=== PATIENT | male | born 1990 | race African-American/Black ===

== ENCOUNTER 2016-07-18 13:56 | Inpatient (IN) | payer OTHER ==
[2016-07-18 17:18] VITALS: BMI 25.0
--- NOTE | 2016-07-18 19:26 | HP ---
COWS - Scale Resting Pulse: 0= [place] 80 or Below Sweatin= Chills/Flushing Restless Observation: 3= Extraneous Movement Pupil Size: 0= Normal to Room Light Bone or Joint Aches: 2= Severe Diffuse Aches Runny Nose/ Eye Tearin= Runny Nose/Eyes GI Upset > 30mins: 2= Nausea/Diarrhea Tremor Observation: 2= Slight Tremor Visible Yawning Observation: 0= None Anxiety or Irritability: 2=Irritable/Anxious Goose Flesh Skin: 0=Smooth Skin COWS Score: 14 Admission [facility] - HPI Chief Complaint: WITHDRAWAL SX Allergies/Adverse Reactions: Allergies Allergy/AdvReac Type Severity Reaction Status Date / Time No Known Allergies Allergy Verified 07/18/16 18:02 History of Present Illness: 25 YEARS OLD MALE WITH LONG HISTORY OF OPIUM NICOTINE DEPENDENCE DENIES MEDICAL ISSUE HAS DEPRESSION IS ADMITTED TO DETOX Exam Limitations: No Limitations - Ebola screening Have you traveled outside of the country in the last 21 days: No Have you had contact with anyone from an Ebola affected area: No Have you been sick,other than usual withdrawal symptoms: No Do you have a fever: No - Review of Systems Constitutional: Chills, Changes in sleep, Weight Stable EENT: reports: No Symptoms Reported Respiratory: reports: No Symptoms reported Cardiac: reports: No Symptoms Reported GI: reports: Nausea, Poor Fluid Intake, Abdominal cramping : reports: No Symptoms Reported Musculoskeletal: reports: Back Pain, Joint Pain, Muscle Pain, Neck Pain Integumentary: reports: Change in Color (IV OPIUM) Neuro: reports: Tremors Endocrine: reports: No Symptoms Reported Hematology: reports: No Symptoms Reported Psychiatric: reports: Judgement Intact, Orientated x3, Depressed Other Systems: Reviewed and Negative Patient History - Patient Medical History Hx Anemia: No Hx Asthma: No Hx Chronic Obstructive Pulmonary Disease (COPD): No Hx Cancer: No Hx Cardiac Disorders: No Hx Congestive Heart Failure: No Hx Hypertension: No Hx Hypercholesterolemia: No Hx Pacemaker: No HX Cerebrovascular Accident: No Hx Seizures: No Hx Dementia: No Hx Diabetes: No Hx Gastrointestinal Disorders: No Hx Liver Disease: No Hx Genitourinary Disorders: No Hx Sexually Transmitted Disorders: No Hx Renal Disease (ESRD): No Hx Thyroid Disease: No Hx Human Immunodeficiency Virus (HIV): No Hx Hepatitis C: No Hx Depression: Yes Hx Suicide Attempt: No Hx Bipolar Disorder: No Hx Schizophrenia: No - Patient Surgical History Past Surgical History: No Hx Neurologic Surgery: No Hx Cataract Extraction: No Hx Cardiac Surgery: No Hx Lung Surgery: No Hx Breast Surgery: No Hx Breast Biopsy: No Hx Abdominal Surgery: No Hx Appendectomy: No Hx Cholecystectomy: No Hx Genitourinary Surgery: No Hx Orthopedic Surgery: No - PPD History Previous Implant?: Yes Documented Results: Negative w/o proof Implanted On Prior [facility] Admission?: No PPD to be Administered?: Yes - Smoking Cessation Smoking history: Current every day smoker Have you smoked in the past 12 months: Yes Aproximately how many cigarettes per day: 10 Cigars Per Day: 0 Hx Chewing Tobacco Use: No Initiated information on smoking cessation: Yes 'Breaking Loose' booklet given: 07/18/16 - Substance & Tx. History Hx Alcohol Use: No Hx Substance Use: Yes Substance Use Type: Cocaine, Heroin, Marijuana Hx Substance Use Treatment: No - Substances Abused Alprazolam (Xanax) Route: Oral Frequency: Daily Amount used: 4mg Age of first use: 20 Date of Last Use: 07/17/16 Heroin Route: Injection Frequency: Daily Amount used: 40$ Age of first use: 20 Date of Last Use: 07/17/16 Admission Physical Exam [facility] - Vital Signs Vital Signs: Vital Signs - 24 hr 07/18/16 17:07 Temperature 98.6 F Pulse Rate 72 Respiratory 18 Rate Blood Pressure 116/71 - Physical General Appearance: Yes: Nourished, Appropriately Dressed, Mild Distress, Tremorous, Irritable, Sweating, Anxious HEENTM: Yes: Hearing grossly Normal, Normal ENT Inspection, Normocephalic, Normal Voice Respiratory: Yes: Chest Non-Tender, Lungs Clear, Normal Breath Sounds, No Respiratory Distress, No Accessory Muscle Use Neck: Yes: Supple, Trachea in good position Breast: Yes: Breasts Symetrical Cardiology: Yes: Regular Rhythm, Regular Rate, S1, S2 Abdominal: Yes: Non Tender, Soft Genitourinary: Yes: Within Normal Limits Back: Yes: Normal Inspection Musculoskeletal: Yes: full range of Motion, Gait Steady, Back pain, Muscle Pain Extremities: Yes: Normal Range of Motion, Non-Tender, Tremors Neurological: Yes: Fully Oriented, Alert, Motor Strength 5/5, Normal Response, Depressed Affect Integumentary: Yes: Warm Lymphatic: Yes: Within Normal Limits - Diagnostic (1) Opioid dependence with withdrawal Current Visit: Yes Status: Acute (2) Cocaine dependence with withdrawal Current Visit: Yes Status: Chronic (3) Cannabis dependence, uncomplicated Current Visit: Yes Status: Chronic (4) Nicotine dependence Current Visit: Yes Status: Acute Qualifiers: Nicotine product type: cigarettes Substance use status: in withdrawal Qualified Code(s): F17.213 - Nicotine dependence, cigarettes, with withdrawal (5) Depression (emotion) Current Visit: Yes Status: Suspected Qualifiers: Depression Type: dysthymia Qualified Code(s): F34.1 - Dysthymic disorder Cleared for Admission [facility] - Detox or Rehab [facility] Level of Care: Medically Managed Detox Regimen/Protocol: Methadone [facility] Breath Alcohol Content Breath Alcohol Content: 0 Urine Drug Screen - Results Drug Screen Negative: No Urine Drug Screen Results: THC-Marijuana, KATE-Cocaine, OPI-Opiates
[2016-07-18] MEDS ORDERED: guaiFENesin/D-METHORPHAN HB 10 ML UNIT-DOSE CUPS PO PRN (19:29)
[2016-07-18] MEDS ORDERED: MAG HYDROX/AL HYDROX/SIMETH 30 ML UNIT-DOSE CUP PO PRN (19:29)
[2016-07-18] MEDS ORDERED: LOPERAMIDE HCL 2 MG CAPSULE PO PRN (19:29)
[2016-07-18] MEDS ORDERED: IBUPROFEN 400 MG TABLET (FP) PO PRN (19:29)
[2016-07-18] MEDS ORDERED: ACETAMINOPHEN 325 MG TABLET (FP) PO PRN (19:29)
[2016-07-18] MEDS ORDERED: MAGNESIUM CITRATE 300 ML BOTTLE PO PRN (19:29)
[2016-07-18] MEDS ORDERED: NICOTINE POLACRILEX 2 MG GUM BC PRN (19:29)
[2016-07-18] MEDS ORDERED: METHADONE HCL 10 MG TABLET (FOR DETOX USE ONLY) PO ONE ×2 (19:29→23:00)
[2016-07-18] MEDS ORDERED: P-EPHED 60MG/TRIPROLIDI 2.5MG TABLET PO PRN (19:29)
[2016-07-18] MEDS ORDERED: MAGNESIUM HYDROX 2400MG/30ML ORAL SUSPENSION 30 ML CUP PO PRN (19:29)
[2016-07-18] MEDS ORDERED: MENTHOL/PHENOL 1 EACH UD MM PRN (19:29)
[2016-07-18] MEDS: THIAMINE HCL 100 MG TABLET (FP) PO SCH (22:10)
[2016-07-18 22:58] LABS: URINE APPEARANCE CLEAR; URINE BILIRUBIN NEGATIVE (NEGATIVE); URINE BLOOD NEGATIVE (NEGATIVE); URINE COLOR LTYELLOW; URINE GLUCOSE (UA) NEGATIVE (NEGATIVE); URINE KETONE NEGATIVE (NEGATIVE); URINE LEUK ESTERASE NEGATIVE (NEGATIVE); URINE NITRITE NEGATIVE (NEGATIVE); URINE PROTEIN NEGATIVE (NEGATIVE); URINE UROBILINOGEN NEGATIVE E.U./dl (0.2-1.0)
[2016-07-19] MEDS ORDERED: METHADONE HCL 10 MG TABLET (FOR DETOX USE ONLY) PO ONE (10:00)
[2016-07-19 10:04] LABS: MCH 28.6 pg (25.7-33.7); MCHC 33.3 g/dl (32.0-35.9); PLATELET COUNT 241 K/MM3 (134-434); RDW 15.2 % (11.9-15.9); WHITE BLOOD COUNT 9.8 K/mm3 (4.0-10.0)
[2016-07-19] MEDS: NICOTINE 14 MG/24 HOURS TOPICAL PATCH TD SCH (10:13)
[2016-07-19] MEDS: PRENATAL VITAMINS W/ FOLIC ACID TABLET (FP) PO SCH (10:13)
[2016-07-19 10:28] LABS: ALBUMIN 3.6 g/dl (3.4-5.0); ALK PHOS 74 U/L (45-117); ANION GAP 8 (8-16); BILIRUBIN,TOTAL 0.6 mg/dL (0.2-1.0); CALCIUM 9.2 mg/dL (8.5-10.1); CO2 27 mmol/L (21-32); COCKROFT - GAULT 103.22; CREATININE 1.2 mg/dL (0.7-1.3); GLUCOSE,RANDOM 102 mg/dL (74-106); SGOT/AST 92 U/L (15-37); SGPT/ALT 30 U/L (12-78); TOT PROT 7.5 g/dl (6.4-8.2)
--- NOTE | 2016-07-19 14:25 | PN ---
S COWS - Scale Resting Pulse: 0= [place] 80 or Below Sweatin=Flushed/Facial Moisture Restless Observation: 1= Difficult to Sit Still Pupil Size: 0= Normal to Room Light Bone or Joint Aches: 2= Severe Diffuse Aches Runny Nose/ Eye Tearin= Nasal Congestion GI Upset > 30mins: 2= Nausea/Diarrhea Tremor Observation of Outstretched Hands: 2= Slight Tremor Visible Yawning Observation: 1= 1-2x During Session Anxiety or Irritability: 2=Irritable/Anxious Goose Flesh Skin: 3=[place] COWS Score: 16 S Progress Note (SOAP) Subjective: Tremors, Diarrhea, H/A, Body Aches, Stomach Cramping, Sweating. Objective: PT. A & O X 3, OBSERVED AMBULATING ON UNIT. NO ACUTE DISTRESS. 07/19/16 14:23 Vital Signs Temperature 98.3 F 07/19/16 13:02 Pulse Rate 65 07/19/16 13:02 Respiratory Rate 18 07/19/16 13:02 Blood Pressure 117/59 07/19/16 13:02 O2 Sat by Pulse Oximetry (%) Laboratory Tests 07/18/16 07/19/16 07/19/16 22:18 06:00 06:00 WBC 9.8 RBC 4.31 Hgb 12.3 Hct 37.1 MCV 86.0 MCHC 33.3 RDW 15.2 Plt Count 241 MPV 9.0 Sodium 134 L Potassium 4.6 Chloride 99 Carbon Dioxide 27 Anion Gap 8 BUN 14 Creatinine 1.2 Creat Clearance w eGFR > 60 Random Glucose 102 Calcium 9.2 Total Bilirubin 0.6 AST 92 H ALT 30 Alkaline Phosphatase 74 Total Protein 7.5 Albumin 3.6 Urine Color Ltyellow Urine Appearance Clear Urine pH 6.0 Ur Specific [place] 1.015 Urine Protein Negative Urine Glucose (UA) Negative Urine Ketones Negative Urine Blood Negative Urine Nitrite Negative Urine Bilirubin Negative Urine Urobilinogen Negative Ur Leukocyte Esterase Negative RPR Titer 07/19/16 06:00 WBC RBC Hgb Hct MCV MCHC RDW Plt Count MPV Sodium Potassium Chloride Carbon Dioxide Anion Gap BUN Creatinine Creat Clearance w eGFR Random Glucose Calcium Total Bilirubin AST ALT Alkaline Phosphatase Total Protein Albumin Urine Color Urine Appearance Urine pH Ur Specific [place] Urine Protein Urine Glucose (UA) Urine Ketones Urine Blood Urine Nitrite Urine Bilirubin Urine Urobilinogen Ur Leukocyte Esterase RPR Titer Nonreactive LABS NOTED. Assessment: 07/19/16 14:23 WITHDRAWAL SYMPTOMS. Plan: CONTINUE DETOX. REPEAT AST ON 07/21/2016 FOR ELEVATED ADMISSION LEVEL.
--- NOTE | 2016-07-19 14:54 | CONSULT ---
[facility] Psychiatric Consult - Data Date of interview: 07/19/16 Admission source: [facility] Identifying data: First admission to [facility] for this 25 y/o AA male seeking detox treatment for heroin,cocaine,marijuana and xanax dependence.Patient is single without children,domiciled,unemployed and supported on welfare. Substance Abuse History: - Smoking Cessation. Smoking history: Current every day smoker. Have you smoked in the past 12 months: Yes. Aproximately how many cigarettes per day: 10. Cigars Per Day: 0. Hx Chewing Tobacco Use: No. Initiated information on smoking cessation: Yes. 'Breaking Loose' booklet given : 07/18/16. - Substance & Tx. History. Hx Alcohol Use: No. Hx Substance Use: Yes. Substance Use Type: Cocaine, Heroin, Marijuana. Hx Substance Use Treatment: No. - Substances Abused. Alprazolam (Xanax). Route: Oral. Frequency: Daily. Amount used: 4mg. Age of first use: 20. Date of Last Use: 07/17/16. Heroin. Route: Injection. Frequency: Daily. Amount used: 40$. Age of first use: 20. Date of Last Use: 07/17/16. Confirmed by patient. Medical History: Hepatitis C. Psychiatric History: Patient denies. Physical/Sexual Abuse/Trauma History: Patient denies. Additional Comment: Urine Drug Screen Results: THC-Marijuana, KATE-Cocaine, OPI- Opiates.Noted. Mental Status Exam - Mental Status Exam Alert and Oriented to: Time, Place, Person Cognitive Function: Good Patient Appearance: Well Groomed (tall stature) Mood: Nervous, Withdrawn Affect: Mood Congruent Patient Behavior: Fatigued, Cooperative Speech Pattern: Clear Voice Loudness: Normal Thought Process: Goal Oriented Thought Disorder: Not Present Hallucinations: Denies Suicidal Ideation: Denies Homicidal Ideation: Denies Insight/Judgement: Poor Sleep: Well Appetite: Good Muscle strength/Tone: Normal Gait/Station: Normal Psychiatric Findings - Problem List ([place] 1, 2,3) (1) Opioid dependence with withdrawal Current Visit: Yes Status: Acute (2) Cannabis dependence, uncomplicated Current Visit: Yes Status: Chronic (3) Cocaine dependence with withdrawal Current Visit: Yes Status: Chronic (4) Nicotine dependence Current Visit: Yes Status: Acute Qualifiers: Nicotine product type: cigarettes Substance use status: in withdrawal Qualified Code(s): F17.213 - Nicotine dependence, cigarettes, with withdrawal (5) Substance induced mood disorder Current Visit: Yes Status: Acute - Initial Treatment Plan Initial Treatment Plan: Psychoeducation.Detoxification.Observation.
--- NOTE | 2016-07-19 15:47 | EKG ---
Test Reason : Blood Pressure : / mmHG Vent. Rate : 072 BPM Atrial Rate : 072 BPM P-R Int : 138 ms QRS Dur : 088 ms QT Int : 484 ms P-R-T Axes : 054 073 031 degrees QTc Int : 529 ms NORMAL SINUS RHYTHM WITH SINUS ARRHYTHMIA MODERATE VOLTAGE CRITERIA FOR LVH, MAY BE NORMAL VARIANT T WAVE ABNORMALITY, CONSIDER ANTERIOR ISCHEMIA PROLONGED QT ABNORMAL ECG NO PREVIOUS ECGS AVAILABLE CLINICAL CORRELATION IS RECOMMENDED Confirmed by ROJELIO PRITCHARD, SHILPA ([id number]) on 07/19/2016 3:46:38 PM Referred By: Confirmed By:SHILPA SERRATO MD
[2016-07-19] MEDS: THIAMINE HCL 100 MG TABLET (FP) PO SCH (22:08)
[2016-07-19] MEDS: diazePAM 5 MG TABLET PO PRN (22:09)
[2016-07-20] MEDS: diazePAM 5 MG TABLET PO PRN ×3 (05:36→22:06)
[2016-07-20] MEDS: NICOTINE 14 MG/24 HOURS TOPICAL PATCH TD SCH (09:45)
[2016-07-20] MEDS: PRENATAL VITAMINS W/ FOLIC ACID TABLET (FP) PO SCH (09:45)
[2016-07-20] MEDS ORDERED: METHADONE HCL 5 MG TABLET (FOR DETOX USE ONLY) PO ONE (10:00)
[2016-07-20] MEDS ORDERED: COLLOIDAL OATMEAL 1 BAR EACH TP PRN (12:41)
--- NOTE | 2016-07-20 12:54 | PN ---
S COWS - Scale Resting Pulse: 0= [place] 80 or Below Sweatin=Flushed/Facial Moisture Restless Observation: 3= Extraneous Movement Pupil Size: 1= Pupils >than Normal Bone or Joint Aches: 2= Severe Diffuse Aches Runny Nose/ Eye Tearin= Runny Nose/Eyes GI Upset > 30mins: 2= Nausea/Diarrhea Tremor Observation of Outstretched Hands: 2= Slight Tremor Visible Yawning Observation: 2= >3x During Session Anxiety or Irritability: 2=Irritable/Anxious Goose Flesh Skin: 0=Smooth Skin COWS Score: 18 S Progress Note (SOAP) Subjective: Nausea, sweating, anxious, chills, tremor Objective: 07/20/16 12:51 Last Vital Signs Temp Pulse Resp BP Pulse Ox 97.2 F L 79 18 110/71 07/20/16 09:28 07/20/16 09:28 07/20/16 09:28 07/20/16 09:28 Laboratory Tests 07/18/16 07/19/16 07/19/16 22:18 06:00 06:00 WBC 9.8 RBC 4.31 Hgb 12.3 Hct 37.1 MCV 86.0 MCHC 33.3 RDW 15.2 Plt Count 241 MPV 9.0 Sodium 134 L Potassium 4.6 Chloride 99 Carbon Dioxide 27 Anion Gap 8 BUN 14 Creatinine 1.2 Creat Clearance w eGFR > 60 Random Glucose 102 Calcium 9.2 Total Bilirubin 0.6 AST 92 H ALT 30 Alkaline Phosphatase 74 Total Protein 7.5 Albumin 3.6 Urine Color Ltyellow Urine Appearance Clear Urine pH 6.0 Ur Specific [place] 1.015 Urine Protein Negative Urine Glucose (UA) Negative Urine Ketones Negative Urine Blood Negative Urine Nitrite Negative Urine Bilirubin Negative Urine Urobilinogen Negative Ur Leukocyte Esterase Negative RPR Titer 07/19/16 06:00 WBC RBC Hgb Hct MCV MCHC RDW Plt Count MPV Sodium Potassium Chloride Carbon Dioxide Anion Gap BUN Creatinine Creat Clearance w eGFR Random Glucose Calcium Total Bilirubin AST ALT Alkaline Phosphatase Total Protein Albumin Urine Color Urine Appearance Urine pH Ur Specific [place] Urine Protein Urine Glucose (UA) Urine Ketones Urine Blood Urine Nitrite Urine Bilirubin Urine Urobilinogen Ur Leukocyte Esterase RPR Titer Nonreactive Labs noted Assessment: 07/20/16 12:53 Withdrawal symptoms Plan: Continue detox Encouraged to drink adequate amount of water (at least 8 cups/day)
[2016-07-20] MEDS: THIAMINE HCL 100 MG TABLET (FP) PO SCH (22:06)
[2016-07-21] MEDS: diazePAM 5 MG TABLET PO PRN ×3 (05:56→17:10)
[2016-07-21] MEDS ORDERED: METHADONE HCL 5 MG TABLET (FOR DETOX USE ONLY) PO ONE (10:00)
[2016-07-21] MEDS: PRENATAL VITAMINS W/ FOLIC ACID TABLET (FP) PO SCH (10:04)
[2016-07-21] MEDS: NICOTINE 14 MG/24 HOURS TOPICAL PATCH TD SCH (10:05)
--- NOTE | 2016-07-21 12:22 | PN ---
BHS Progress Note (SOAP) Subjective: Sweating,interrupted sleep restless. Objective: 07/21/16 12:18 Vital Signs - 8 hr 07/21/16 07/21/16 06:13 09:17 Temperature 97.7 F 96.7 F L Pulse Rate 56 L 70 Respiratory 18 18 Rate Blood Pressure 114/62 112/70 Laboratory Last Values WBC 9.8 K/mm3 (4.0-10.0) 07/19/16 06:00 RBC 4.31 M/mm3 (4.00-5.60) 07/19/16 06:00 Hgb 12.3 GM/dL (11.7-16.9) 07/19/16 06:00 Hct 37.1 % (35.4-49) 07/19/16 06:00 MCV 86.0 fl (80-96) 07/19/16 06:00 MCHC 33.3 g/dl (32.0-35.9) 07/19/16 06:00 RDW 15.2 % (11.9-15.9) 07/19/16 06:00 Plt Count 241 K/MM3 (134-434) 07/19/16 06:00 MPV 9.0 fl (7.5-11.1) 07/19/16 06:00 Sodium 134 mmol/L (136-145) L 07/19/16 06:00 Potassium 4.6 mmol/L (3.5-5.1) 07/19/16 06:00 Chloride 99 mmol/L (98-107) 07/19/16 06:00 Carbon Dioxide 27 mmol/L (21-32) 07/19/16 06:00 Anion Gap 8 (8-16) 07/19/16 06:00 BUN 14 mg/dL (7-18) 07/19/16 06:00 Creatinine 1.2 mg/dL (0.7-1.3) 07/19/16 06:00 Creat Clearance w eGFR > 60 (>60) 07/19/16 06:00 Random Glucose 102 mg/dL (74-106) 07/19/16 06:00 Calcium 9.2 mg/dL (8.5-10.1) 07/19/16 06:00 Total Bilirubin 0.6 mg/dL (0.2-1.0) 07/19/16 06:00 AST 18 U/L (15-37) D 07/21/16 07:00 ALT 30 U/L (12-78) 07/19/16 06:00 Alkaline Phosphatase 74 U/L (45-117) 07/19/16 06:00 Total Protein 7.5 g/dl (6.4-8.2) 07/19/16 06:00 Albumin 3.6 g/dl (3.4-5.0) 07/19/16 06:00 Urine Color Ltyellow 07/18/16 22:18 Urine Appearance Clear 07/18/16 22:18 Urine pH 6.0 (5.0-8.0) 07/18/16 22:18 Ur Specific [place] 1.015 (1.005-1.025) 07/18/16 22:18 Urine Protein Negative (NEGATIVE) 07/18/16 22:18 Urine Glucose (UA) Negative (NEGATIVE) 07/18/16 22:18 Urine Ketones Negative (NEGATIVE) 07/18/16 22:18 Urine Blood Negative (NEGATIVE) 07/18/16 22:18 Urine Nitrite Negative (NEGATIVE) 07/18/16 22:18 Urine Bilirubin Negative (NEGATIVE) 07/18/16 22:18 Urine Urobilinogen Negative E.U./dl (0.2-1.0) 07/18/16 22:18 Ur Leukocyte Esterase Negative (NEGATIVE) 07/18/16 22:18 RPR Titer Nonreactive (NONREACTIVE) 07/19/16 06:00 labs noted Assessment: 07/21/16 12:20 Withdrawal sx. Plan: Continue detox
[2016-07-21] MEDS: THIAMINE HCL 100 MG TABLET (FP) PO SCH (22:31)
[2016-07-21] MEDS: diphenhydrAMINE HCL 50 MG CAPSULE PO PRN (22:31)
[2016-07-22] MEDS ORDERED: METHADONE HCL 10 MG TABLET (FOR DETOX USE ONLY) PO ONE (10:00)
[2016-07-22] MEDS: PRENATAL VITAMINS W/ FOLIC ACID TABLET (FP) PO SCH (10:12)
[2016-07-22] MEDS: NICOTINE 14 MG/24 HOURS TOPICAL PATCH TD SCH (10:13)
--- NOTE | 2016-07-22 13:04 | PN ---
BHS Progress Note (SOAP) Subjective: Sweating,interrupted sleep,restless. Objective: 07/22/16 13:03 Vital Signs - 8 hr 07/22/16 07/22/16 06:09 09:11 Temperature 97.6 F 98.4 F Pulse Rate 51 L 84 Respiratory 18 18 Rate Blood Pressure 112/66 111/69 Laboratory Tests 07/18/16 07/19/16 07/19/16 22:18 06:00 06:00 WBC 9.8 RBC 4.31 Hgb 12.3 Hct 37.1 MCV 86.0 MCHC 33.3 RDW 15.2 Plt Count 241 MPV 9.0 Sodium 134 L Potassium 4.6 Chloride 99 Carbon Dioxide 27 Anion Gap 8 BUN 14 Creatinine 1.2 Creat Clearance w eGFR > 60 Random Glucose 102 Calcium 9.2 Total Bilirubin 0.6 AST 92 H ALT 30 Alkaline Phosphatase 74 Total Protein 7.5 Albumin 3.6 Urine Color Ltyellow Urine Appearance Clear Urine pH 6.0 Ur Specific [place] 1.015 Urine Protein Negative Urine Glucose (UA) Negative Urine Ketones Negative Urine Blood Negative Urine Nitrite Negative Urine Bilirubin Negative Urine Urobilinogen Negative Ur Leukocyte Esterase Negative RPR Titer 07/19/16 07/21/16 06:00 07:00 WBC RBC Hgb Hct MCV MCHC RDW Plt Count MPV Sodium Potassium Chloride Carbon Dioxide Anion Gap BUN Creatinine Creat Clearance w eGFR Random Glucose Calcium Total Bilirubin AST 18 D ALT Alkaline Phosphatase Total Protein Albumin Urine Color Urine Appearance Urine pH Ur Specific [place] Urine Protein Urine Glucose (UA) Urine Ketones Urine Blood Urine Nitrite Urine Bilirubin Urine Urobilinogen Ur Leukocyte Esterase RPR Titer Nonreactive labs noted Assessment: 07/22/16 13:04 Withdrawal sx, Plan: Continue detox
[2016-07-22] MEDS: THIAMINE HCL 100 MG TABLET (FP) PO SCH (22:09)
[2016-07-22] MEDS: diphenhydrAMINE HCL 50 MG CAPSULE PO PRN (22:09)
[2016-07-23] MEDS ORDERED: METHADONE HCL 5 MG TABLET (FOR DETOX USE ONLY) PO ONE (06:00)
[2016-07-23 06:29] VITALS: BP 99/65; PULSE 57; TEMP 97.5
--- NOTE | 2016-07-23 11:17 | DS ---
[facility] Detox Discharge Summary Admission Date: 07/18/16 Discharge Date: 07/23/16 - History Present History: Cannabis Dependence, Cocaine Dependence, Opioid Dependence Additional Comments: ADVISED PATIENT TO FOLLOW-UP WITH CURRICULUM DIRECTOR AFTER DISCHARGE FROM DETOX FOR GENERAL MEDICAL ASSESSMENT. Pertinent Past History: Depression. - Physical Exam Results Vital Signs: Vital Signs Temperature 97.5 F L 07/23/16 06:29 Pulse Rate 57 L 07/23/16 06:29 Respiratory Rate 16 07/23/16 06:29 Blood Pressure 99/65 07/23/16 06:29 O2 Sat by Pulse Oximetry (%) Pertinent Admission Physical Exam Findings: WITHDRAWAL SYMPTOMS. Laboratory Tests 07/18/16 07/19/16 07/19/16 22:18 06:00 06:00 WBC 9.8 RBC 4.31 Hgb 12.3 Hct 37.1 MCV 86.0 MCHC 33.3 RDW 15.2 Plt Count 241 MPV 9.0 Sodium 134 L Potassium 4.6 Chloride 99 Carbon Dioxide 27 Anion Gap 8 BUN 14 Creatinine 1.2 Creat Clearance w eGFR > 60 Random Glucose 102 Calcium 9.2 Total Bilirubin 0.6 AST 92 H ALT 30 Alkaline Phosphatase 74 Total Protein 7.5 Albumin 3.6 Urine Color Ltyellow Urine Appearance Clear Urine pH 6.0 Ur Specific [place] 1.015 Urine Protein Negative Urine Glucose (UA) Negative Urine Ketones Negative Urine Blood Negative Urine Nitrite Negative Urine Bilirubin Negative Urine Urobilinogen Negative Ur Leukocyte Esterase Negative RPR Titer 07/19/16 07/21/16 06:00 07:00 WBC RBC Hgb Hct MCV MCHC RDW Plt Count MPV Sodium Potassium Chloride Carbon Dioxide Anion Gap BUN Creatinine Creat Clearance w eGFR Random Glucose Calcium Total Bilirubin AST 18 D ALT Alkaline Phosphatase Total Protein Albumin Urine Color Urine Appearance Urine pH Ur Specific [place] Urine Protein Urine Glucose (UA) Urine Ketones Urine Blood Urine Nitrite Urine Bilirubin Urine Urobilinogen Ur Leukocyte Esterase RPR Titer Nonreactive LABS NOTED. - Treatment Hospital Course: Detox Protocol Followed, Detoxed Safely, Responded well, Discharged Condition Good Patient has Accepted a Rehab Referral to: PT. GOING HOME AT THIS TIME; WILL PURSUE ADMISSION TO REHAB AT LATER DATE. - Medication Discharge Medications: Ambulatory Orders NK [No Known Home Medication] 07/18/16 - Diagnosis (1) Nicotine dependence Status: Chronic Qualifiers: Nicotine product type: cigarettes Substance use status: in withdrawal Qualified Code(s): F17.213 - Nicotine dependence, cigarettes, with withdrawal (2) Opioid dependence with withdrawal Status: Acute (3) Substance induced mood disorder Status: Acute (4) Cannabis dependence, uncomplicated Status: Acute (5) Cocaine dependence with withdrawal Status: Acute (6) Depression (emotion) Status: Suspected Qualifiers: Depression Type: dysthymia Qualified Code(s): F34.1 - Dysthymic disorder - AMA Did Patient Leave Against Medical Advice: No
== END 2016-07-23 09:43 | disposition home or self-care (01) | DRG 773 ==
LOC: YASAS 13:56 → Y3N 19:11
PROVIDERS: ADMIT Internal Medicine; ATTEND Internal Medicine
PROC: HZ2ZZZZ Detoxification Services for Substance Abuse Treatment (ICD-10-PCS; principal; 2016-07-18)
DX: F11.23 Opioid dependence with withdrawal (principal); F14.23 Cocaine dependence with withdrawal; F12.20 Cannabis dependence, uncomplicated; F17.213 Nicotine dependence, cigarettes, with withdrawal; F19.24 Other psychoactive substance dependence with psychoactive substance-induced mood disorder; F34.1 Dysthymic disorder
CPT/HCPCS: 36415; 80053; 81003; 84450; 85027; 86593; 93005; 93010

== ENCOUNTER 2018-12-21 21:32 | Inpatient (IN) | payer OTHER ==
[2018-12-22 02:18] VITALS: BMI 27.2
--- NOTE | 2018-12-22 02:30 | HP ---
COWS - Scale Resting Pulse: 0= [place] 80 or Below Sweatin=Flushed/Facial Moisture Restless Observation: 1= Difficult to Sit Still Pupil Size: 0= Normal to Room Light Bone or Joint Aches: 2= Severe Diffuse Aches Runny Nose/ Eye Tearin= Runny Nose/Eyes GI Upset > 30mins: 2= Nausea/Diarrhea (diarrhea x 3) Tremor Observation: 2= Slight Tremor Visible Yawning Observation: 1= 1-2x During Session Anxiety or Irritability: 2=Irritable/Anxious Goose Flesh Skin: 0=Smooth Skin COWS Score: 14 CIWA Score - Admission Criteria OASAS Guidelines: Admission for Medically Managed Detox: Requires at least one of the followin. CIWA greater than 12 2. Seizures within the past 24 hours 3. Delirium tremens within the past 24 hours 4. Hallucinations within the past 24 hours 5. Acute intervention needed for co occurring medical disorder 6. Acute intervention needed for co occurring psychiatric disorder 7. Severe withdrawal that cannot be handled at a lower level of care (continued vomiting, continued diarrhea, abnormal vital signs) requiring intravenous medication and/or fluids 8. Admitting History and Physical - Smoking History Smoking history: Current every day smoker Have you smoked in the past 12 months: Yes Aproximately how many cigarettes per day: 10 - Alcohol/Substance Use Hx Alcohol Use: No Admission ROS [facility] Chief Complaint: Opioid withdrawal symptoms Allergies/Adverse Reactions: Allergies Allergy/AdvReac Type Severity Reaction Status Date / Time No Known Allergies Allergy Verified 07/18/16 18:02 History of Present Illness: 27 years old male with 4 years of Opioid dependence is seeking admission to detox. He reports that he has been in multiple detoxification, last at [facility] and the longest period of sobriety is eleven months. He denies past medical history at this time. Exam Limitations: No Limitations - Ebola screening Have you traveled outside of the country in the last 21 days: No (N) Have you had contact with anyone from an Ebola affected area: No Do you have a fever: No - Review of Systems Constitutional: Chills, Loss of Appetite, Night Sweats, Changes in sleep EENT: reports: Tearing Respiratory: reports: No Symptoms reported Cardiac: reports: No Symptoms Reported Musculoskeletal: reports: Back Pain Integumentary: reports: Dryness, Flushing Neuro: reports: Tremors Endocrine: reports: No Symptoms Reported Hematology: reports: No Symptoms Reported Psychiatric: reports: Mood/Affect Appropiate, Orientated x3, Anxious Other Systems: Reviewed and Negative Patient History - Patient Medical History Hx Anemia: No Hx Asthma: No Hx Chronic Obstructive Pulmonary Disease (COPD): No Hx Cancer: No Hx Cardiac Disorders: No Hx Congestive Heart Failure: No Hx Hypertension: No Hx Hypercholesterolemia: No Hx Pacemaker: No HX Cerebrovascular Accident: No Hx Seizures: No Hx Dementia: No Hx Diabetes: No Hx Gastrointestinal Disorders: No Hx Liver Disease: No Hx Genitourinary Disorders: No Hx Sexually Transmitted Disorders: No Hx Renal Disease (ESRD): No Hx Thyroid Disease: No Hx Human Immunodeficiency Virus (HIV): No Hx Hepatitis C: No Hx Depression: Yes Hx Suicide Attempt: No Hx Bipolar Disorder: No Hx Schizophrenia: No - Patient Surgical History Past Surgical History: No Hx Neurologic Surgery: No Hx Cataract Extraction: No Hx Cardiac Surgery: No Hx Lung Surgery: No Hx Breast Surgery: No Hx Breast Biopsy: No Hx Abdominal Surgery: No Hx Appendectomy: No Hx Cholecystectomy: No Hx Genitourinary Surgery: No Hx Section: No Hx Orthopedic Surgery: No Anesthesia Reaction: No - PPD History Previous Implant?: Yes Documented Results: Negative w/proof Implanted On Prior [facility] Admission?: Yes Date: 07/20/16 PPD to be Administered?: Yes - Reproductive History Patient is a Female of Child Bearing Age (11 -55 yrs old): No (male) - Smoking Cessation Smoking history: Current every day smoker Have you smoked in the past 12 months: Yes Aproximately how many cigarettes per day: 10 Cigars Per Day: 0 Hx Chewing Tobacco Use: No Initiated information on smoking cessation: Yes 'Breaking Loose' booklet given: 12/22/18 Admission Physical Exam BHS - Vital Signs Vital Signs: Vital Signs - 24 hr 12/22/18 02:14 Temperature 98.3 F Pulse Rate 75 Respiratory 18 Rate Blood Pressure 139/80 - Physical General Appearance: Yes: Within Normal Limits HEENTM: Yes: Within Normal Limits Respiratory: Yes: Lungs Clear, Normal Breath Sounds, No Respiratory Distress Neck: Yes: Supple Breast: Yes: Breast Exam Deferred Genitourinary: Yes: Within Normal Limits Back: Yes: Normal Inspection Musculoskeletal: Yes: Back pain Extremities: Yes: Tremors Neurological: Yes: Within Normal Limits, Alert, Normal Mood/Affect Integumentary: Yes: Warm Lymphatic: Yes: Within Normal Limits - Diagnostic (1) Opioid dependence with withdrawal Current Visit: Yes Status: Acute (2) Cocaine dependence with withdrawal Current Visit: Yes Status: Chronic (3) Nicotine dependence Current Visit: No Status: Chronic Qualifiers: Nicotine product type: cigarettes Substance use status: uncomplicated Qualified Code(s): F17.210 - Nicotine dependence, cigarettes, uncomplicated Cleared for Admission S - Detox or Rehab [facility] Level of Care: Medically Managed Detox Regimen/Protocol: Methadone Breathalyzer - Breathalyzer Breathalyzer: 0 Urine Drug Screen - Test Device Lot number: [id number] Expiration date: 08/08/20 - Control Is test valid?: Yes - Results Drug screen NEGATIVE: No Urine drug screen results: KATE-Cocaine, FEN-Fentanyl Inpatient Rehab Admission - Rehab Decision to Admit Inpatient rehab admission?: No
[2018-12-22] MEDS ORDERED: METHOCARBAMOL 500 MG TABLET PO PRN (02:36)
[2018-12-22] MEDS ORDERED: METHADONE HCL 10 MG TABLET (FOR DETOX USE ONLY) PO ONE ×2 (02:36→14:24)
[2018-12-22] MEDS ORDERED: IBUPROFEN 400 MG TABLET (FP) PO PRN (02:36)
[2018-12-22] MEDS ORDERED: MAGNESIUM CITRATE 300 ML BOTTLE PO PRN (02:36)
[2018-12-22] MEDS ORDERED: MAGNESIUM HYDROX 2400MG/30ML ORAL SUSPENSION 30 ML CUP PO PRN (02:36)
[2018-12-22] MEDS ORDERED: BISMUTH SUBSALICYLATE 524 MG/30 ML UD PO PRN (02:36)
[2018-12-22] MEDS ORDERED: MAG HYDROX/AL HYDROX/SIMETH 30 ML UNIT-DOSE CUP PO PRN (02:36)
[2018-12-22] MEDS ORDERED: hydrOXYzine PAMOATE 25 MG CAPSULE (FP) PO PRN (02:36)
[2018-12-22] MEDS ORDERED: ACETAMINOPHEN 325 MG TABLET (FP) PO PRN ×2 (02:36)
[2018-12-22] MEDS ORDERED: MENTHOL/PHENOL 1 EACH UD MM PRN (02:36)
[2018-12-22] MEDS ORDERED: NICOTINE POLACRILEX 2 MG GUM BUC PRN (02:36)
[2018-12-22] MEDS: NICOTINE 14 MG/24 HOURS TOPICAL PATCH TD SCH (13:30)
[2018-12-22] MEDS: PRENATAL VITAMINS W/ FOLIC ACID TABLET (FP) PO SCH (13:32)
[2018-12-22] MEDS: THIAMINE HCL 100 MG TABLET (FP) PO SCH (22:31)
[2018-12-22] MEDS: MELATONIN 5 MG TABLETS PO PRN (22:32)
[2018-12-23 09:44] LABS: HEMOGLOBIN 13.1 GM/dL (11.7-16.9); MCH 28.9 pg (25.7-33.7); MCHC 33.7 g/dl (32.0-35.9); MEAN PLT VOLUME 8.3 fl (7.5-11.1); PLATELET COUNT 282 K/MM3 (134-434); RBC 4.53 M/mm3 (4.00-5.60); RDW 14.4 % (11.9-15.9); WHITE BLOOD COUNT 5.7 K/mm3 (4.0-10.0)
[2018-12-23] MEDS ORDERED: METHADONE HCL 5 MG TABLET (FOR DETOX USE ONLY) PO ONE (10:00)
[2018-12-23 10:04] LABS: ALBUMIN 3.2 g/dl (3.4-5.0); BILIRUBIN,TOTAL 0.3 mg/dL (0.2-1); BLOOD UREA NITROGEN 8.5 mg/dL (7-18); CALCIUM 9.1 mg/dL (8.5-10.1); POTASSIUM 3.9 mmol/L (3.5-5.1); TOT PROT 6.7 g/dl (6.4-8.2)
--- NOTE | 2018-12-23 10:46 | PN ---
BHS COWS - Scale Resting Pulse: 0= [place] 80 or Below Sweatin= No chills or Flushing Restless Observation: 1= Difficult to Sit Still Pupil Size: 1= Pupils >than Normal Bone or Joint Aches: 1= Mild Discomfort Runny Nose/ Eye Tearin= Nasal Congestion GI Upset > 30mins: 1= Stomach Cramp Tremor Observation of Outstretched Hands: 2= Slight Tremor Visible Yawning Observation: 1= 1-2x During Session Anxiety or Irritability: 2=Irritable/Anxious Goose Flesh Skin: 0=Smooth Skin COWS Score: 10 BHS Progress Note (SOAP) Subjective: alert,irritable,anxious,interrupted sleep,pain in the body and back Objective: 12/23/18 10:36 Vital Signs Temperature 98.4 F 12/23/18 09:44 Pulse Rate 72 12/23/18 09:44 Respiratory Rate 18 12/23/18 09:44 Blood Pressure 121/51 L 12/23/18 09:44 O2 Sat by Pulse Oximetry (%) Laboratory Last Values WBC 5.7 K/mm3 (4.0-10.0) 12/23/18 06:00 RBC 4.53 M/mm3 (4.00-5.60) 12/23/18 06:00 Hgb 13.1 GM/dL (11.7-16.9) 12/23/18 06:00 Hct 39.0 % (35.4-49) 12/23/18 06:00 MCV 86.0 fl (80-96) 12/23/18 06:00 MCH 28.9 pg (25.7-33.7) 12/23/18 06:00 MCHC 33.7 g/dl (32.0-35.9) 12/23/18 06:00 RDW 14.4 % (11.9-15.9) 12/23/18 06:00 Plt Count 282 K/MM3 (134-434) 12/23/18 06:00 MPV 8.3 fl (7.5-11.1) 12/23/18 06:00 Sodium 142 mmol/L (136-145) 12/23/18 06:00 Potassium 3.9 mmol/L (3.5-5.1) 12/23/18 06:00 Chloride 105 mmol/L (98-107) 12/23/18 06:00 Carbon Dioxide 30 mmol/L (21-32) 12/23/18 06:00 Anion Gap 7 MMOL/L (8-16) L 12/23/18 06:00 BUN 8.5 mg/dL (7-18) 12/23/18 06:00 Creatinine 1.0 mg/dL (0.55-1.3) 12/23/18 06:00 Est GFR (CKD-EPI)AfAm 117.36 12/23/18 06:00 Est GFR (CKD-EPI)NonAf 101.26 12/23/18 06:00 Random Glucose 90 mg/dL (74-106) 12/23/18 06:00 Calcium 9.1 mg/dL (8.5-10.1) 12/23/18 06:00 Total Bilirubin 0.3 mg/dL (0.2-1) 12/23/18 06:00 AST 15 U/L (15-37) 12/23/18 06:00 ALT 24 U/L (13-61) 12/23/18 06:00 Alkaline Phosphatase 61 U/L (45-117) 12/23/18 06:00 Total Protein 6.7 g/dl (6.4-8.2) 12/23/18 06:00 Albumin 3.2 g/dl (3.4-5.0) L 12/23/18 06:00 12/23/18 10:37 rpr pending Assessment: 12/23/18 10:37 withdrawal symptom Plan: continue detox methadone regimen
[2018-12-23] MEDS: cloNIDine HCL 0.1 MG TABLET PO PRN ×2 (11:19→22:23)
[2018-12-23] MEDS: PRENATAL VITAMINS W/ FOLIC ACID TABLET (FP) PO SCH (11:19)
[2018-12-23] MEDS: NICOTINE 14 MG/24 HOURS TOPICAL PATCH TD SCH (11:20)
--- NOTE | 2018-12-23 12:42 | EKG ---
Test Reason : Blood Pressure : / mmHG Vent. Rate : 064 BPM Atrial Rate : 064 BPM P-R Int : 138 ms QRS Dur : 092 ms QT Int : 436 ms P-R-T Axes : 051 057 036 degrees QTc Int : 449 ms NORMAL SINUS RHYTHM MINIMAL VOLTAGE CRITERIA FOR LVH, MAY BE NORMAL VARIANT NONSPECIFIC ST AND T WAVE ABNORMALITY ABNORMAL ECG WHEN COMPARED WITH ECG OF 18-JUL-2016 20:22, QT HAS SHORTENED Confirmed by MARU PRITCHARD, SIDNEY ([id number]) on 12/23/2018 12:41:48 PM Referred By: Adolfo Pierre Confirmed By:SIDNEY MAHONEY MD
[2018-12-23] MEDS: THIAMINE HCL 100 MG TABLET (FP) PO SCH (22:16)
[2018-12-23] MEDS: MELATONIN 5 MG TABLETS PO PRN (22:17)
[2018-12-24] MEDS ORDERED: METHADONE HCL 10 MG TABLET (FOR DETOX USE ONLY) PO ONE ×2 (10:00→16:30)
[2018-12-24] MEDS: NICOTINE 14 MG/24 HOURS TOPICAL PATCH TD SCH (11:16)
[2018-12-24] MEDS: PRENATAL VITAMINS W/ FOLIC ACID TABLET (FP) PO SCH (11:16)
--- NOTE | 2018-12-24 12:16 | PN ---
BHS COWS - Scale Resting Pulse: 0= [place] 80 or Below Sweatin= Chills/Flushing Restless Observation: 1= Difficult to Sit Still Pupil Size: 1= Pupils >than Normal Bone or Joint Aches: 2= Severe Diffuse Aches Runny Nose/ Eye Tearin= Nasal Congestion GI Upset > 30mins: 1= Stomach Cramp Tremor Observation of Outstretched Hands: 1= Tremor [place], Not Seen Yawning Observation: 1= 1-2x During Session Anxiety or Irritability: 1=Feels Anxious/Irritable Goose Flesh Skin: 0=Smooth Skin COWS Score: 10 BHS Progress Note (SOAP) Subjective: INTERRUPTED SLEEP, SWEATS, KNEE PAINS Objective: 12/24/18 12:16 Vital Signs Temperature 98.6 F 12/24/18 09:30 Pulse Rate 60 12/24/18 09:30 Respiratory Rate 16 12/24/18 09:30 Blood Pressure 115/52 L 12/24/18 09:30 O2 Sat by Pulse Oximetry (%) Laboratory Tests 12/23/18 12/23/18 12/23/18 06:00 06:00 06:00 WBC 5.7 RBC 4.53 Hgb 13.1 Hct 39.0 MCV 86.0 MCH 28.9 MCHC 33.7 RDW 14.4 Plt Count 282 MPV 8.3 Sodium 142 Potassium 3.9 Chloride 105 Carbon Dioxide 30 Anion Gap 7 L BUN 8.5 Creatinine 1.0 Est GFR (CKD-EPI)AfAm 117.36 Est GFR (CKD-EPI)NonAf 101.26 Random Glucose 90 Calcium 9.1 Total Bilirubin 0.3 AST 15 ALT 24 Alkaline Phosphatase 61 Total Protein 6.7 Albumin 3.2 L RPR Titer Nonreactive PT AOX3 IN NAD AMBULATING Assessment: 12/24/18 12:16 WITHDRAWAL SX'S Plan: CONT. DETOX INCREASE FLUIDS
[2018-12-24] MEDS: MELATONIN 5 MG TABLETS PO PRN (22:21)
[2018-12-24] MEDS: THIAMINE HCL 100 MG TABLET (FP) PO SCH (22:21)
[2018-12-25] MEDS ORDERED: METHADONE HCL 5 MG TABLET (FOR DETOX USE ONLY) PO ONE (06:00)
[2018-12-25] MEDS: PRENATAL VITAMINS W/ FOLIC ACID TABLET (FP) PO SCH (10:35)
[2018-12-25] MEDS: NICOTINE 14 MG/24 HOURS TOPICAL PATCH TD SCH (10:36)
[2018-12-25 14:41] VITALS: BP 115/52; PULSE 79; TEMP 97.6
--- NOTE | 2018-12-25 16:10 | DS ---
[facility] Detox Discharge Summary Admission Date: 12/22/18 Discharge Date: 12/25/18 - History Present History: Cocaine Dependence, Opioid Dependence Additional Comments: PATIENT RETURNING HOME, WILL ATTEND LOCAL OUTPATIENT SUPPORT GROUP PROGRAM FOR AFTERCARE. PATIENT WAS DISCHARGED FROM DETOX UNIT IN STABLE MEDICAL CONDITION. Pertinent Past History: Nicotine Dependence, Depression. - Physical Exam Results Vital Signs: Vital Signs Temperature 97.6 F 12/25/18 14:41 Pulse Rate 79 12/25/18 14:41 Respiratory Rate 18 12/25/18 14:41 Blood Pressure 115/52 L 12/25/18 14:41 O2 Sat by Pulse Oximetry (%) Pertinent Admission Physical Exam Findings: WITHDRAWAL SYMPTOMS. Laboratory Tests 12/23/18 12/23/18 12/23/18 06:00 06:00 06:00 WBC 5.7 RBC 4.53 Hgb 13.1 Hct 39.0 MCV 86.0 MCH 28.9 MCHC 33.7 RDW 14.4 Plt Count 282 MPV 8.3 Sodium 142 Potassium 3.9 Chloride 105 Carbon Dioxide 30 Anion Gap 7 L BUN 8.5 Creatinine 1.0 Est GFR (CKD-EPI)AfAm 117.36 Est GFR (CKD-EPI)NonAf 101.26 Random Glucose 90 Calcium 9.1 Total Bilirubin 0.3 AST 15 ALT 24 Alkaline Phosphatase 61 Total Protein 6.7 Albumin 3.2 L RPR Titer Nonreactive LABS NOTED. - Treatment Hospital Course: Detox Protocol Followed, Detoxed Safely, Responded well, Discharged Condition Good Patient has Accepted a Rehab Referral to: PATIENT WILL ATTEND LOCAL OUTPATIENT SUPPORT GROUP PROGRAM. - Medication Discharge Medications: Ambulatory Orders NK [No Known Home Medication] 07/18/16 - Diagnosis (1) Opioid dependence with withdrawal Status: Acute (2) Cocaine dependence with withdrawal Status: Chronic (3) Nicotine dependence Status: Chronic Qualifiers: Nicotine product type: cigarettes Substance use status: uncomplicated Qualified Code(s): F17.210 - Nicotine dependence, cigarettes, uncomplicated - AMA Did Patient Leave Against Medical Advice: No
== END 2018-12-25 11:10 | disposition home or self-care (01) | DRG 774 ==
LOC: YASAS 21:32 → Y6N 12-22 02:46
PROVIDERS: ADMIT Allergy & Immunology; ATTEND Allergy & Immunology
PROC: HZ2ZZZZ Detoxification Services for Substance Abuse Treatment (ICD-10-PCS; principal; 2018-12-22)
DX: F10.230 Alcohol dependence with withdrawal, uncomplicated (principal); F14.23 Cocaine dependence with withdrawal; F17.210 Nicotine dependence, cigarettes, uncomplicated
CPT/HCPCS: 36415; 80053; 85027; 86593; 93005; 93010; J0735

== ENCOUNTER 2020-10-03 14:25 | Inpatient (IN) | payer OTHER ==
[2020-10-03 15:57] VITALS: BMI 25.1
[2020-10-03] MEDS ORDERED: IBUPROFEN 400 MG TABLET (FP) PO PRN (18:32)
[2020-10-03] MEDS ORDERED: cloNIDine HCL 0.1 MG TABLET PO PRN (18:32)
[2020-10-03] MEDS ORDERED: NICOTINE 10 MG CARTRIDGE (INHALER) IH PRN (18:32)
[2020-10-03] MEDS ORDERED: MAGNESIUM HYDROX 2400MG/30ML ORAL SUSPENSION 30 ML CUP PO PRN (18:32)
[2020-10-03] MEDS ORDERED: ONDANSETRON *ODT* 4 MG TABLET SL PRN (18:32)
[2020-10-03] MEDS ORDERED: MAG HYDROX/AL HYDROX/SIMETH 30 ML UNIT-DOSE CUP PO PRN (18:32)
[2020-10-03] MEDS ORDERED: clonazePAM 0.5 MG ODT TABLETS SL PRN (18:32)
[2020-10-03] MEDS ORDERED: ACETAMINOPHEN 325 MG TABLET (FP) PO PRN ×2 (18:32)
[2020-10-03] MEDS ORDERED: diazePAM 5 MG TABLET PO PRN (18:32)
[2020-10-03] MEDS ORDERED: BISMUTH SUBSALICYLATE 524 MG/30 ML PO PRN (18:32)
[2020-10-03] MEDS ORDERED: MAGNESIUM CITRATE 300 ML BOTTLE PO PRN (18:32)
[2020-10-03] MEDS ORDERED: diazePAM 5 MG TABLET PO ONE (19:15)
[2020-10-03] MEDS ORDERED: methaDONE HCL 10 MG TABLET (FOR DETOX USE ONLY) PO ONE (19:15)
[2020-10-03 21:35] LABS: URINE APPEARANCE CLOUDY; URINE BILIRUBIN NEGATIVE (NEGATIVE); URINE COLOR ORANGE; URINE GLUCOSE (UA) NEGATIVE (NEGATIVE); URINE KETONE NEGATIVE (NEGATIVE); URINE LEUK ESTERASE NEGATIVE (NEGATIVE); URINE NITRITE NEGATIVE (NEGATIVE); URINE PROTEIN NEGATIVE (NEGATIVE); URINE UROBILINOGEN 0.2 mg/dL (0.2-1.0)
[2020-10-03] MEDS: diazePAM 5 MG TABLET PO SCH (22:19)
[2020-10-03] MEDS: MELATONIN 5 MG TABLETS PO PRN (22:19)
[2020-10-03] MEDS: THIAMINE HCL 100 MG TABLET (FP) PO SCH (22:19)
[2020-10-04] MEDS: diazePAM 5 MG TABLET PO SCH ×4 (06:15→22:39)
[2020-10-04] MEDS ORDERED: methaDONE HCL 10 MG TABLET (FOR DETOX USE ONLY) ONE (09:17)
[2020-10-04] MEDS: NICOTINE 14 MG/24 HOURS TOPICAL PATCH TD SCH (10:34)
[2020-10-04] MEDS: PRENATAL VITAMINS W/ FOLIC ACID TABLET (FP) PO SCH (10:37)
[2020-10-04 10:55] LABS: ALBUMIN 2.8 g/dl (3.4-5.0); BLOOD UREA NITROGEN 9.8 mg/dL (7-18); CALCIUM 8.8 mg/dL (8.5-10.1)
[2020-10-04 10:57] LABS: HEMATOCRIT 38.8 % (35.4-49); HEMOGLOBIN 13.1 GM/dL (11.7-16.9); MCH 30.6 pg (25.7-33.7); MCHC 33.8 g/dl (32.0-35.9); MEAN CELL VOLUME 90.4 fl (80-96); MEAN PLT VOLUME 8.1 fl (7.5-11.1); PLATELET COUNT 257 10^3/uL (134-434); RBC 4.29 M/mm3 (4.00-5.60); RDW 14.4 % (11.9-15.9)
[2020-10-04 10:58] LABS: CREATININE 1.2 mg/dL (0.55-1.3)
[2020-10-04 11:00] LABS: TOT PROT 7.3 g/dl (6.4-8.2)
[2020-10-04 11:04] LABS: BILIRUBIN,TOTAL 0.2 mg/dL (0.2-1)
[2020-10-04] MEDS ORDERED: COLLOIDAL OATMEAL 1 BAR EACH TP PRN (11:18)
[2020-10-04] MEDS: MELATONIN 5 MG TABLETS PO PRN (22:40)
[2020-10-04] MEDS: THIAMINE HCL 100 MG TABLET (FP) PO SCH (22:40)
[2020-10-05] MEDS: diazePAM 5 MG TABLET PO SCH ×3 (06:27→22:16)
[2020-10-05] MEDS ORDERED: methaDONE HCL 10 MG TABLET (FOR DETOX USE ONLY) PO ONE (10:00)
[2020-10-05] MEDS: PRENATAL VITAMINS W/ FOLIC ACID TABLET (FP) PO SCH (10:02)
[2020-10-05] MEDS: METHOCARBAMOL 500 MG TABLET PO PRN (10:02)
[2020-10-05] MEDS: NICOTINE 14 MG/24 HOURS TOPICAL PATCH TD SCH (10:02)
[2020-10-05] MEDS: MELATONIN 5 MG TABLETS PO PRN (22:16)
[2020-10-05] MEDS: THIAMINE HCL 100 MG TABLET (FP) PO SCH (22:16)
[2020-10-06] MEDS: MENTHOL/PHENOL 1 EACH UD MM PRN (06:11)
[2020-10-06] MEDS: diazePAM 5 MG TABLET PO SCH ×2 (06:11→18:02)
[2020-10-06] MEDS ORDERED: methaDONE HCL 10 MG TABLET (FOR DETOX USE ONLY) ONE (09:32)
[2020-10-06] MEDS: METHOCARBAMOL 500 MG TABLET PO PRN ×3 (10:40→23:10)
[2020-10-06] MEDS: PRENATAL VITAMINS W/ FOLIC ACID TABLET (FP) PO SCH (10:40)
[2020-10-06] MEDS: NICOTINE 14 MG/24 HOURS TOPICAL PATCH TD SCH (10:41)
[2020-10-06] MEDS: THIAMINE HCL 100 MG TABLET (FP) PO SCH (23:09)
[2020-10-07] MEDS: MENTHOL/PHENOL 1 EACH UD MM PRN (05:42)
[2020-10-07] MEDS ORDERED: diazePAM 5 MG TABLET PO ONE (06:00)
[2020-10-07] MEDS ORDERED: methaDONE HCL 10 MG TABLET (FOR DETOX USE ONLY) PO ONE (10:00)
[2020-10-07] MEDS: METHOCARBAMOL 500 MG TABLET PO PRN ×2 (10:31→22:31)
[2020-10-07] MEDS: PRENATAL VITAMINS W/ FOLIC ACID TABLET (FP) PO SCH (10:31)
[2020-10-07] MEDS: NICOTINE 14 MG/24 HOURS TOPICAL PATCH TD SCH (10:32)
[2020-10-07] MEDS ORDERED: hydrOXYzine PAMOATE 50 MG CAPSULE (FP) PO PRN (11:13)
[2020-10-07 20:51] VITALS: TEMP 97.5
[2020-10-07] MEDS: THIAMINE HCL 100 MG TABLET (FP) PO SCH (22:30)
[2020-10-07] MEDS: MELATONIN 5 MG TABLETS PO PRN (22:30)
[2020-10-08 06:19] VITALS: BP 111/65; PULSE 61
[2020-10-08] MEDS: PRENATAL VITAMINS W/ FOLIC ACID TABLET (FP) PO SCH (09:06)
[2020-10-08] MEDS: NICOTINE 14 MG/24 HOURS TOPICAL PATCH TD SCH (09:06)
== END 2020-10-08 09:00 | disposition home or self-care (01) | DRG 773 ==
LOC: YASAS 14:25 → Y3N 18:07
PROVIDERS: ADMIT Allergy & Immunology; ATTEND Allergy & Immunology
PROC: HZ2ZZZZ Detoxification Services for Substance Abuse Treatment (ICD-10-PCS; principal; 2020-10-03)
DX: F11.23 Opioid dependence with withdrawal (principal); F10.230 Alcohol dependence with withdrawal, uncomplicated; F14.10 Cocaine abuse, uncomplicated; F12.20 Cannabis dependence, uncomplicated; F17.210 Nicotine dependence, cigarettes, uncomplicated; F41.9 Anxiety disorder, unspecified; E88.09 Other disorders of plasma-protein metabolism, not elsewhere classified; J34.89 Other specified disorders of nose and nasal sinuses; R73.9 Hyperglycemia, unspecified; Z56.0 Unemployment, unspecified
CPT/HCPCS: 36415; 80053; 81003; 85027; 86780; 93005; 93010; C9803; U0003; U0005

== ENCOUNTER 2020-11-25 21:30 | Inpatient (IN) | payer OTHER ==
[2020-11-25] MEDS ORDERED: MAGNESIUM CITRATE 300 ML BOTTLE PO PRN (23:18)
[2020-11-25] MEDS ORDERED: BISMUTH SUBSALICYLATE 524 MG/30 ML PO PRN (23:18)
[2020-11-25] MEDS ORDERED: MAGNESIUM HYDROX 2400MG/30ML ORAL SUSPENSION 30 ML CUP PO PRN (23:18)
[2020-11-25] MEDS ORDERED: ACETAMINOPHEN 325 MG TABLET (FP) PO PRN ×2 (23:18)
[2020-11-25] MEDS ORDERED: MENTHOL/PHENOL 1 EACH UD MM PRN (23:18)
[2020-11-25] MEDS ORDERED: IBUPROFEN 400 MG TABLET (FP) PO PRN (23:18)
[2020-11-25] MEDS ORDERED: NICOTINE POLACRILEX 2 MG GUM BUC PRN (23:18)
[2020-11-25] MEDS ORDERED: MAG HYDROX/AL HYDROX/SIMETH 30 ML UNIT-DOSE CUP PO PRN (23:18)
[2020-11-25] MEDS ORDERED: ONDANSETRON *ODT* 4 MG TABLET SL PRN (23:18)
[2020-11-25] MEDS ORDERED: methaDONE HCL 10 MG TABLET (FOR DETOX USE ONLY) PO ONE (23:24)
[2020-11-25] MEDS ORDERED: cloNIDine HCL 0.1 MG TABLET PO PRN (23:24)
[2020-11-25] MEDS ORDERED: diazePAM 5 MG TABLET PO PRN (23:26)
[2020-11-25 23:54] VITALS: BMI 26.4
[2020-11-26] MEDS ORDERED: diazePAM 5 MG TABLET ONE (00:19)
[2020-11-26] MEDS ORDERED: methaDONE HCL 10 MG TABLET (FOR DETOX USE ONLY) ONE ×2 (00:19→09:24)
[2020-11-26] MEDS: diazePAM 5 MG TABLET PO SCH ×5 (00:50→22:46)
[2020-11-26] MEDS: METHOCARBAMOL 500 MG TABLET PO PRN ×2 (02:04→22:41)
[2020-11-26] MEDS: PRENATAL VITAMINS W/ FOLIC ACID TABLET (FP) PO SCH (10:41)
[2020-11-26] MEDS: NICOTINE 14 MG/24 HOURS TOPICAL PATCH TD SCH (11:07)
[2020-11-26 12:09] LABS: ALBUMIN 2.8 g/dl (3.4-5.0); BLOOD UREA NITROGEN 13.8 mg/dL (7-18); CALCIUM 8.2 mg/dL (8.5-10.1)
[2020-11-26 12:13] LABS: CREATININE 1.1 mg/dL (0.55-1.3)
[2020-11-26 12:14] LABS: BILIRUBIN,TOTAL 0.2 mg/dL (0.2-1); TOT PROT 6.7 g/dl (6.4-8.2)
[2020-11-26 12:19] LABS: HEMATOCRIT 35.7 % (35.4-49); HEMOGLOBIN 12.3 GM/dL (11.7-16.9); MCH 29.9 pg (25.7-33.7); MCHC 34.5 g/dl (32.0-35.9); MEAN CELL VOLUME 86.6 fl (80-96); MEAN PLT VOLUME 7.8 fl (7.5-11.1); PLATELET COUNT 288 10^3/uL (134-434); RBC 4.13 M/mm3 (4.00-5.60); RDW 15.2 % (11.9-15.9); WHITE BLOOD COUNT 3.9 K/mm3 (4.0-10.0)
[2020-11-26] MEDS: THIAMINE HCL 100 MG TABLET (FP) PO SCH (22:41)
[2020-11-26] MEDS: MELATONIN 5 MG TABLETS PO SCH (22:41)
[2020-11-27] MEDS: diazePAM 5 MG TABLET PO SCH ×3 (05:17→22:14)
[2020-11-27] MEDS: METHOCARBAMOL 500 MG TABLET PO PRN ×2 (05:19→22:15)
[2020-11-27] MEDS ORDERED: methaDONE HCL 10 MG TABLET (FOR DETOX USE ONLY) PO ONE (10:00)
[2020-11-27] MEDS: PRENATAL VITAMINS W/ FOLIC ACID TABLET (FP) PO SCH (10:07)
[2020-11-27] MEDS: NICOTINE 14 MG/24 HOURS TOPICAL PATCH TD SCH (10:07)
[2020-11-27] MEDS: MELATONIN 5 MG TABLETS PO SCH (22:14)
[2020-11-27] MEDS: THIAMINE HCL 100 MG TABLET (FP) PO SCH (22:14)
[2020-11-28] MEDS: diazePAM 5 MG TABLET PO SCH ×2 (05:07→17:48)
[2020-11-28] MEDS ORDERED: methaDONE HCL 10 MG TABLET (FOR DETOX USE ONLY) ONE (09:32)
[2020-11-28] MEDS: METHOCARBAMOL 500 MG TABLET PO PRN ×2 (10:09→22:34)
[2020-11-28] MEDS: PRENATAL VITAMINS W/ FOLIC ACID TABLET (FP) PO SCH (10:10)
[2020-11-28] MEDS: NICOTINE 14 MG/24 HOURS TOPICAL PATCH TD SCH (10:11)
[2020-11-28] MEDS: MELATONIN 5 MG TABLETS PO SCH (22:34)
[2020-11-28] MEDS: THIAMINE HCL 100 MG TABLET (FP) PO SCH (22:34)
[2020-11-29] MEDS ORDERED: diazePAM 5 MG TABLET PO ONE (06:00)
[2020-11-29] MEDS ORDERED: methaDONE HCL 10 MG TABLET (FOR DETOX USE ONLY) PO ONE (10:00)
[2020-11-29] MEDS: METHOCARBAMOL 500 MG TABLET PO PRN ×2 (10:21→22:22)
[2020-11-29] MEDS: NICOTINE 14 MG/24 HOURS TOPICAL PATCH TD SCH (10:21)
[2020-11-29] MEDS: PRENATAL VITAMINS W/ FOLIC ACID TABLET (FP) PO SCH (10:22)
[2020-11-29] MEDS: THIAMINE HCL 100 MG TABLET (FP) PO SCH (22:21)
[2020-11-29] MEDS: MELATONIN 5 MG TABLETS PO SCH (22:21)
[2020-11-29] MEDS: hydrOXYzine PAMOATE 25 MG CAPSULE (FP) PO PRN (22:22)
[2020-11-30] MEDS: hydrOXYzine PAMOATE 25 MG CAPSULE (FP) PO PRN (05:26)
[2020-11-30] MEDS: METHOCARBAMOL 500 MG TABLET PO PRN (05:26)
[2020-11-30 08:53] VITALS: BP 125/79; PULSE 95; TEMP 96.9
== END 2020-11-30 09:37 | disposition home or self-care (01) | DRG 773 ==
LOC: YASAS 21:30 → Y3N 11-26 00:03
PROVIDERS: ADMIT Allergy & Immunology; ATTEND Allergy & Immunology
PROC: HZ2ZZZZ Detoxification Services for Substance Abuse Treatment (ICD-10-PCS; principal; 2020-11-26)
DX: F11.23 Opioid dependence with withdrawal (principal); F10.230 Alcohol dependence with withdrawal, uncomplicated; F14.20 Cocaine dependence, uncomplicated; F12.20 Cannabis dependence, uncomplicated; F17.210 Nicotine dependence, cigarettes, uncomplicated; F34.1 Dysthymic disorder; Z86.19 Personal history of other infectious and parasitic diseases
CPT/HCPCS: 36415; 80053; 85027; 86780; C9803; J0735; U0003; U0005

== ENCOUNTER 2021-03-02 21:28 | Inpatient (IN) | payer OTHER ==
[2021-03-02 22:11] VITALS: BMI 25.4
[2021-03-02] MEDS ORDERED: MAGNESIUM CITRATE 300 ML BOTTLE PO PRN (22:39)
[2021-03-02] MEDS ORDERED: NICOTINE POLACRILEX 2 MG GUM BUC PRN (22:39)
[2021-03-02] MEDS ORDERED: P-EPHED 60MG/TRIPROLIDI 2.5MG TABLET PO PRN (22:39)
[2021-03-02] MEDS ORDERED: NALOXONE (NARCAN) HCL 4 MG/0.1 ML SPRAY NS PRN (22:39)
[2021-03-02] MEDS ORDERED: DICYCLOMINE HCL 10 MG CAPSULE PO PRN (22:39)
[2021-03-02] MEDS ORDERED: MAGNESIUM HYDROX 2400MG/30ML ORAL SUSPENSION 30 ML CUP PO PRN (22:39)
[2021-03-02] MEDS ORDERED: MENTHOL/PHENOL 1 EACH UD MM PRN (22:39)
[2021-03-02] MEDS ORDERED: BISMUTH SUBSALICYLATE 524 MG/30 ML PO PRN (22:39)
[2021-03-02] MEDS ORDERED: ACETAMINOPHEN 325 MG TABLET (FP) PO PRN ×2 (22:39)
[2021-03-02] MEDS ORDERED: guaiFENesin 200 MG/10 ML 10 ML UNIT-DOSE CUPS PO PRN (22:39)
[2021-03-02] MEDS ORDERED: IBUPROFEN 400 MG TABLET (FP) PO PRN (22:39)
[2021-03-02] MEDS ORDERED: MAG HYDROX/AL HYDROX/SIMETH 30 ML UNIT-DOSE CUP PO PRN (22:39)
[2021-03-02] MEDS ORDERED: ONDANSETRON *ODT* 4 MG TABLET SL PRN (22:39)
[2021-03-02] MEDS ORDERED: NALOXONE HCL 0.4 MG/ML VIAL IM PRN (22:39)
[2021-03-03] MEDS: BACITRACIN 0.9 GM PACKET TP SCH ×3 (00:52→22:17)
[2021-03-03] MEDS: PRENATAL VITAMINS W/ FOLIC ACID TABLET (FP) PO SCH (10:29)
[2021-03-03] MEDS: hydrOXYzine PAMOATE 25 MG CAPSULE (FP) PO PRN (10:29)
[2021-03-03] MEDS: NICOTINE 14 MG/24 HOURS TOPICAL PATCH TD SCH (10:29)
[2021-03-03] MEDS ORDERED: methaDONE HCL 10 MG TABLET (FOR DETOX USE ONLY) PO ONE (10:43)
[2021-03-03] MEDS: METHOCARBAMOL 500 MG TABLET PO PRN ×2 (10:55→22:19)
[2021-03-03 11:12] LABS: HEMATOCRIT 34.9 % (35.4-49); HEMOGLOBIN 11.7 GM/dL (11.7-16.9); MCH 29.5 pg (25.7-33.7); MCHC 33.5 g/dl (32.0-35.9); MEAN PLT VOLUME 8.5 fl (7.5-11.1); PLATELET COUNT 218 10^3/uL (134-434); RBC 3.96 M/mm3 (4.00-5.60); RDW 14.7 % (11.9-15.9); WHITE BLOOD COUNT 7.7 K/mm3 (4.0-10.0)
[2021-03-03 11:20] LABS: CALCIUM 8.8 mg/dL (8.5-10.1)
[2021-03-03 11:21] LABS: ALBUMIN 3.2 g/dl (3.4-5.0); BLOOD UREA NITROGEN 11.8 mg/dL (7-18)
[2021-03-03 11:24] LABS: CREATININE 1.2 mg/dL (0.55-1.3)
[2021-03-03 11:26] LABS: BILIRUBIN,TOTAL 0.3 mg/dL (0.2-1); TOT PROT 6.4 g/dl (6.4-8.2)
[2021-03-03] MEDS ORDERED: MELATONIN 5 MG TABLETS PO SCH (22:00)
[2021-03-03] MEDS: cloNIDine HCL 0.1 MG TABLET PO PRN (22:19)
[2021-03-03] MEDS: SUVOREXANT 10 MG TABLET PO PRN (22:20)
[2021-03-03] MEDS: THIAMINE HCL 100 MG TABLET (FP) PO SCH (22:21)
[2021-03-04] MEDS ORDERED: methaDONE HCL 10 MG TABLET (FOR DETOX USE ONLY) ONE (09:10)
[2021-03-04] MEDS: METHOCARBAMOL 500 MG TABLET PO PRN ×2 (10:20→22:15)
[2021-03-04] MEDS: hydrOXYzine PAMOATE 25 MG CAPSULE (FP) PO PRN ×2 (10:20→22:13)
[2021-03-04] MEDS: NICOTINE 14 MG/24 HOURS TOPICAL PATCH TD SCH (10:22)
[2021-03-04] MEDS: BACITRACIN 0.9 GM PACKET TP SCH ×2 (10:22→22:12)
[2021-03-04] MEDS: PRENATAL VITAMINS W/ FOLIC ACID TABLET (FP) PO SCH (10:22)
[2021-03-04] MEDS ORDERED: diazePAM 5 MG TABLET PO PRN (10:23)
[2021-03-04] MEDS: amLODIPine BESYLATE 5 MG TABLET (FP) PO SCH (12:43)
[2021-03-04] MEDS: cloNIDine HCL 0.1 MG TABLET PO PRN ×2 (12:43→22:13)
[2021-03-04] MEDS: THIAMINE HCL 100 MG TABLET (FP) PO SCH (22:13)
[2021-03-05] MEDS ORDERED: methaDONE HCL 10 MG TABLET (FOR DETOX USE ONLY) PO ONE (10:00)
[2021-03-05] MEDS: PRENATAL VITAMINS W/ FOLIC ACID TABLET (FP) PO SCH (10:24)
[2021-03-05] MEDS: amLODIPine BESYLATE 5 MG TABLET (FP) PO SCH (10:24)
[2021-03-05] MEDS: METHOCARBAMOL 500 MG TABLET PO PRN ×2 (10:24→22:38)
[2021-03-05] MEDS: hydrOXYzine PAMOATE 25 MG CAPSULE (FP) PO PRN ×2 (10:24→22:38)
[2021-03-05] MEDS: cloNIDine HCL 0.1 MG TABLET PO PRN ×2 (10:26→22:38)
[2021-03-05] MEDS: BACITRACIN 0.9 GM PACKET TP SCH ×2 (10:55→22:38)
[2021-03-05] MEDS: NICOTINE 14 MG/24 HOURS TOPICAL PATCH TD SCH (10:55)
[2021-03-05 19:00] LABS: PH,URINE 7.5 (5.0-8.0); URINE APPEARANCE CLEAR; URINE BILIRUBIN NEGATIVE (NEGATIVE); URINE COLOR YELLOW; URINE GLUCOSE (UA) NEGATIVE (NEGATIVE); URINE KETONE NEGATIVE (NEGATIVE); URINE LEUK ESTERASE NEGATIVE (NEGATIVE); URINE NITRITE NEGATIVE (NEGATIVE); URINE PROTEIN NEGATIVE (NEGATIVE); URINE UROBILINOGEN 0.2 mg/dL (0.2-1.0)
[2021-03-05] MEDS: SUVOREXANT 10 MG TABLET PO PRN (22:37)
[2021-03-05] MEDS: THIAMINE HCL 100 MG TABLET (FP) PO SCH (22:38)
[2021-03-06] MEDS ORDERED: methaDONE HCL 10 MG TABLET (FOR DETOX USE ONLY) ONE (08:41)
[2021-03-06] MEDS: NICOTINE 14 MG/24 HOURS TOPICAL PATCH TD SCH (10:53)
[2021-03-06] MEDS: BACITRACIN 0.9 GM PACKET TP SCH ×2 (10:53→22:30)
[2021-03-06] MEDS: amLODIPine BESYLATE 5 MG TABLET (FP) PO SCH (10:54)
[2021-03-06] MEDS: PRENATAL VITAMINS W/ FOLIC ACID TABLET (FP) PO SCH (10:54)
[2021-03-06] MEDS: hydrOXYzine PAMOATE 25 MG CAPSULE (FP) PO PRN ×2 (10:54→22:30)
[2021-03-06] MEDS: METHOCARBAMOL 500 MG TABLET PO PRN ×2 (10:54→22:30)
[2021-03-06] MEDS: THIAMINE HCL 100 MG TABLET (FP) PO SCH (22:30)
[2021-03-06] MEDS: SUVOREXANT 10 MG TABLET PO PRN (22:30)
[2021-03-07] MEDS ORDERED: methaDONE HCL 10 MG TABLET (FOR DETOX USE ONLY) PO ONE (10:00)
[2021-03-07] MEDS: BACITRACIN 0.9 GM PACKET TP SCH ×2 (10:51→22:21)
[2021-03-07] MEDS: hydrOXYzine PAMOATE 25 MG CAPSULE (FP) PO PRN ×2 (10:51→22:21)
[2021-03-07] MEDS: amLODIPine BESYLATE 5 MG TABLET (FP) PO SCH (10:52)
[2021-03-07] MEDS: METHOCARBAMOL 500 MG TABLET PO PRN ×2 (10:54→22:21)
[2021-03-07] MEDS: PRENATAL VITAMINS W/ FOLIC ACID TABLET (FP) PO SCH (10:54)
[2021-03-07] MEDS: NICOTINE 14 MG/24 HOURS TOPICAL PATCH TD SCH (10:54)
[2021-03-07] MEDS: SUVOREXANT 10 MG TABLET PO PRN (22:20)
[2021-03-07] MEDS: THIAMINE HCL 100 MG TABLET (FP) PO SCH (22:21)
[2021-03-08] MEDS: hydrOXYzine PAMOATE 25 MG CAPSULE (FP) PO PRN ×2 (06:17→10:11)
[2021-03-08 09:48] VITALS: BP 113/61; PULSE 66; TEMP 97.8
[2021-03-08] MEDS: amLODIPine BESYLATE 5 MG TABLET (FP) PO SCH (10:10)
[2021-03-08] MEDS: BACITRACIN 0.9 GM PACKET TP SCH (10:10)
[2021-03-08] MEDS: NICOTINE 14 MG/24 HOURS TOPICAL PATCH TD SCH (10:10)
[2021-03-08] MEDS: METHOCARBAMOL 500 MG TABLET PO PRN (10:10)
[2021-03-08] MEDS: PRENATAL VITAMINS W/ FOLIC ACID TABLET (FP) PO SCH (10:10)
== END 2021-03-08 10:58 | disposition home or self-care (01) | DRG 773 ==
LOC: YASAS 21:28 → Y6N 22:43 → UNDOADMIN 22:43
PROVIDERS: ADMIT Allergy & Immunology; ATTEND Allergy & Immunology
PROC: HZ2ZZZZ Detoxification Services for Substance Abuse Treatment (ICD-10-PCS; principal; 2021-03-02)
DX: F11.23 Opioid dependence with withdrawal (principal); F10.20 Alcohol dependence, uncomplicated; F12.20 Cannabis dependence, uncomplicated; F17.210 Nicotine dependence, cigarettes, uncomplicated; F19.282 Other psychoactive substance dependence with psychoactive substance-induced sleep disorder; F19.24 Other psychoactive substance dependence with psychoactive substance-induced mood disorder; F42.4 Excoriation (skin-picking) disorder; G47.00 Insomnia, unspecified; Z86.19 Personal history of other infectious and parasitic diseases; Z56.0 Unemployment, unspecified
CPT/HCPCS: 36415; 80053; 81003; 85027; 86780; C9803; J0735; U0003; U0005